=== PATIENT | female | born 1975 | race Caucasian/White ===

== ENCOUNTER 2024-04-17 13:47 | Emergency (ER) | payer BC, SELFPAY ==
[2024-04-17] VITALS (10 sets, daily range): BP systolic 123–140; BP diastolic 74–100; PULSE 66–103; RESP 12–20; TEMP 36.5; O2SAT 95–99
--- NOTE | 2024-04-17 14:00 | DI.RAD_ITS ---
Exam(s) XR FEMUR RT EXAM: XR FEMUR RT CLINICAL HISTORY: Self-inflicted wounds, eval foreign body. TECHNIQUE: 2D digital imaging was performed. AP and lateral views. COMPARISON: No exams were available for comparison FINDINGS: BONES: No acute fracture is present. No bony destructive lesion is seen. JOINTS: Visualized portion of knee and hip joints are unremarkable. SOFT TISSUE: Exam mildly limited by overlying clothing. No radiopaque foreign body. IMPRESSION: Unremarkable radiographs of the right femur. DATA REPOSITORY: RADIATION DOSE DELIVERED:
--- NOTE | 2024-04-17 14:00 | DI.RAD_ITS ---
Exam(s) XR FOREARM LT EXAM: XR FOREARM LT CLINICAL HISTORY: Self-inflicted wounds, eval foreign body. TECHNIQUE: 2D digital imaging was performed. Two views. COMPARISON: No exams were available for comparison FINDINGS: BONES: No acute fracture is present. No bony destructive lesion is seen. Visualized portion of elbow and wrist joints are unremarkable. SOFT TISSUE: Swelling ventral aspect of upper forearm. Small amount of soft tissue air. No foreign body. IMPRESSION: Soft tissue swelling. No visible foreign body. DATA REPOSITORY: RADIATION DOSE DELIVERED:
[2024-04-17] MEDS: Diph,Pertuss(Acell),Tet Vac/Pf 0.5 ML SYR IM (14:11)
[2024-04-17] MEDS: Ibuprofen 600 MG TAB PO (14:11)
[2024-04-17] MEDS: Acetaminophen 500 MG TAB 1000 MG PO (14:11)
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
--- NOTE | 2024-04-17 15:12 | DI.VRAD_ITS ---
PROCEDURE INFORMATION: Exam: XR Right Femur Exam date and time: 04/17/2024 2:49 PM Age: 48 years old Clinical indication: Injury or trauma; Other: Self-inflicted wounds, eval foreign body TECHNIQUE: Imaging protocol: Radiologic exam of the right femur. Views: 2 views. COMPARISON: No relevant prior studies available. FINDINGS: Bones/joints: Unremarkable. No acute fracture. Soft tissues: Unremarkable. IMPRESSION: No evidence for acute abnormality. No radiopaque foreign body noted. Dictated and Authenticated by: Lisa Chan MD. Orderin [facility] Constant[facility] Roberto MD
--- NOTE | 2024-04-17 15:13 | DI.VRAD_ITS ---
PROCEDURE INFORMATION: Exam: XR Left Forearm Exam date and time: 04/17/2024 2:55 PM Age: 48 years old Clinical indication: Injury or trauma; Other: Self-inflicted wounds, eval foreign body TECHNIQUE: Imaging protocol: Radiologic exam of the left forearm. Views: 2 views. COMPARISON: No relevant prior studies available. FINDINGS: Bones/joints: Normal. Soft tissues: There is a soft tissue defect at the ventral aspect of the proximal forearm soft tissues, presumed laceration. No radiopaque foreign body identified. IMPRESSION: Soft tissue injury. No acute bony abnormality. Dictated and Authenticated by: Lisa Chan MD. Orderin [facility] Constantine Roberto MD
[2024-04-17 15:32] LABS: *AMPHETAMINES SCREEN URINE Negative (Negative); *BARBITURATES SCREEN URINE Negative (Negative); *BENZODIAZEPINES SCREEN URINE Negative (Negative); Cannabinoids THC Negative (Negative); Cocaine Screen,Urine Negative (Negative); METHADONE URINE SCREEN Negative (Negative); OPIATES URINE SCREEN Negative (Negative)
--- OUTSIDE RECORDS SUMMARY | 2024-04-17 15:34 | XMS_ITS | Patient Health Record ---
Author Organization [facility] Address [address] [place] [address] Care Team Providers Care Upholstery Cleaner Name Role Phone Cinthia WELSH, Kimberli Primary Care Provider Bonita Mcdonnell MD, Gabriela Unavailable [phone] Allergies Allergen (clinical drug ingredient) Drug/Non Drug Allergy documented on EMR Reaction Allergy Type Onset Date Status doxycycline Doxycycline Unknown Drug Allergy Act lukas morphine Morphine Unknown Drug Allergy Active Reason For Referral No Information Medications Medication SIG (Take, Route, Frequency, Duration) Notes Start Date End Date Status Ustekinumab 90 mg/ml Active Metoclopramide HCl 5 mg N ot-Taking Paxil Not-Taking Celecoxib 100 mg Not-Taking Magnesium Active inFLIXimab 100 mg Not-Takin g Tylenol Not-Taking Vitamin D Active Amitriptyline HCl 10 mg No t-Taking Vitamin B 12 Active ZyPREXA Active Probiotic Active Reglan Active Ativan Active Social History Tobacco Use: Social History Observation Description Date Details (start date - stop date) Never Smoker NA - NA Smoking Question Answer Notes Are you a: nonsmoker Problems Problem Type SNOMED Code ICD Code Onset Dates Problem Status W/U Status Risk Notes Problem Dysmenorrhea (892256076) Dysmenorrhea, unspecified (N94.6) Active confirmed Problem Premenstrual dysphoric disorder (790616) Premenstrual dysphoric disorder (F32.81) Active confirmed Problem Abnormal uterine bleeding (64811369714051) Abnormal uterine and vaginal bleeding, unspecified (N93.9) Active confirmed Plan Of Treatment No Information Insurance Providers Payer Name Payer Address Payer Phone Subscriber Number Group Number Insured Name Patient Relationship to Insured Coverage Start Date Coverage End Date [employer] [address] [place] [phone] [id number] 1999 VickiLuis snyderin Self - patient is the insured [facility] [place] [address] [place] [phone] [id number] Aminata Locke Self - patient is the insured Medical (General) History Medical History History ICD Code G0 Crohn's disease Anxiety and depression Hx of siezure Shingles Ocular migraines Calculus of kidney Mitral valve prolapse Platelet disorder RA Last pap: 2002 per patient Surgical History Surgery Date(Month/Year) Hospitalization History Reason Date(Month/Year) [facility] ED, [facility] 01/06/20 Crohn's 2008
[2024-04-17 15:40] LABS: Tricyclic Antidepressants Negative (Negative)
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
== END 2024-04-17 17:31 | disposition home or self-care (01) ==
PROVIDERS: Emergency Provider Emergency Medicine
DX: S51.832A Puncture wound without foreign body of left forearm, initial encounter (principal); S71.111A Laceration without foreign body, right thigh, initial encounter; F32.A Depression, unspecified; Z23 Encounter for immunization; X78.1XXA Intentional self-harm by knife, initial encounter; Y93.89 Activity, other specified; Y92.018 Other place in single-family (private) house as the place of occurrence of the external cause
CPT/HCPCS: 00123; 12001; 73552; 80307; 81025; 90471; 90715; 96127; 99284; 73090